=== PATIENT | male | born 2000 | race Caucasian/White ===

== ENCOUNTER 2020-03-30 01:55 | Emergency (ER) | payer MEDICAID ==
[~2020-03-30] VITALS: Ht 165.1 cm; Wt 68.0 kg
--- NOTE | 2020-03-30 02:11 | NUR ---
PT AAOX4. AMBULATORY WITH STEADY GAIT. BIBSELF C/O SI W/ PLAN TO HANG HIMSELF, -HI. PLACED IN GOWN, ON MONITOR AND PULSE OX. PT BELONINGS PLACED IN LOCKER. PT PROVIDED WITH BLANKET. VSS. AWAITING MD FOR EVAL.
--- NOTE | 2020-03-30 02:11 | NUR ---
PT BELONGINGS IN LOCKER #6
[2020-03-30 02:24] LABS: BASOPHILS # (AUTO) 0.1 /CMM (0.0-0.2); BASOPHILS % (AUTO) 0.8 % (0.0-2.0); EOSINOPHILS % (AUTO) 0.6 % (0.0-6.0); HEMATOCRIT 44 % (39-51); HEMOGLOBIN 14.8 g/dL (13.5-17.5); LYMPHOCYTES # (AUTO) 3.2 /CMM (0.8-4.8); LYMPHOCYTES % (AUTO) 24.6 % (20.0-44.0); MEAN CORPUSCULAR HGB CONC 33 g/dl (31.0-36.0); MEAN CORPUSCULAR VOLUME 89 fL (80-96); MONOCYTES # (AUTO) 0.9 /CMM (0.1-1.30); MONOCYTES % (AUTO) 6.6 % (2.0-12.0); NEUTROPHILS # (AUTO) 8.7 /CMM (1.8-8.9); NEUTROPHILS % (AUTO) 67.4 % (43.0-81.0); PLATELET COUNT (AUTO) 475 /CMM (150-450); WHITE BLOOD COUNT (AUTO) 12.9 K/uL (4.3-11.0)
[2020-03-30 02:52] LABS: CALCIUM, SERUM 8.5 mg/dL (8.5-10.1); CARBON DIOXIDE 25 mmol/L (21-32); CHLORIDE 99 mmol/L (98-107); CREATININE 0.9 mg/dL (0.6-1.3); GLUCOSE 100 mg/dL (74-106); POTASSIUM 4.1 mmol/L (3.5-5.1); SODIUM SERUM 136 mmol/L (136-145); UREA NITROGEN, BLOOD 16 mg/dL (7-18)
[2020-03-30 02:57] LABS: ALANINE AMINOTRANSFERASE 54 U/L (12-78); ALBUMIN 3.9 g/dL (3.4-5.0); ALCOHOL, BLOOD < 3 mg/dL (0-0); ALKALINE PHOSPHATASE 131 U/L (46-116); ASPARTATE AMINOTRANSFERASE 24 U/L (15-37); BILIRUBIN,TOTAL 0.2 mg/dL (0.2-1.0); TOTAL PROTEIN, SERUM 7.8 g/dL (6.4-8.2)
[2020-03-30 02:58] LABS: ACETAMINOPHEN 0 ug/ml (10-30); SALICYLATE 2.2 mg/dL (2.8-20.0)
[2020-03-30 03:01] LABS: APPEARANCE,URINE CLEAR (CLEAR); BILIRUBIN,URINE SMALL (NEGATIVE); BLOOD, URINE NEGATIVE Ery/uL (NEGATIVE); COLOR,URINE YELLOW (YELLOW); KETONES,URINE NEGATIVE (NEGATIVE); LEUKOCYTE ESTERASE ,URINE NEGATIVE (NEGATIVE); NITRITE, URINE NEGATIVE (NEGATIVE); PROTEIN,URINE NEGATIVE (NEGATIVE); UGLUCOSE NEGATIVE (NEGATIVE); UROBILINOGEN,URINE 0.2 EU/dL (0.2)
--- NOTE | 2020-03-30 03:54 | NUR ---
PT ASLEEP. SITTER AT BEDSIDE.
--- NOTE | 2020-03-30 04:37 | NUR ---
PT PROVIDED WITH WATER AND BLANKET.
--- NOTE | 2020-03-30 05:45 | NUR ---
Patient is resting comfortably in bed. Easily aroused. VSS.
--- NOTE | 2020-03-30 06:42 | NUR ---
RCEIVED A CALL FROM GUDELIA AT [facility] . CLINICAL HAS RECEIVED. THEY WILL UPDATE US IN ANOTHER COUPLE HOURS FOR ACCEPTANCE AND BED AVAILABILITY.
--- NOTE | 2020-03-30 09:17 | NUR ---
ASSESSED PT ON BED, ASLEEP BUT EASILY AROUSABLE, NOT IN RESPIRATORY DISTRESS, V/S STABLE, KEPT RESTED AND COMFORTABLE, WILL CONTINUE TO MONITOR.
--- NOTE | 2020-03-30 13:59 | NUR ---
COLLEGE PROFESSOR received a call from [facility] stating, pt was referred to [facility] this morning and no one from [facility] intake has followed up. COLLEGE PROFESSOR call [facility] intake and spoke with Marcy. Marcy reported, the clinicals are now being reviewed by business development executive at [place] and Marcy will f/u in 20 minutes with KRYSTA.
--- NOTE | 2020-03-30 14:09 | NUR ---
EKG TECHNICIAN received a call back from [facility] stating pt has been accepted at [facility]. Accepting Dr. Gonzalez/Jesus. Report needs to be called to TIM Campos at .
--- NOTE | 2020-03-30 14:15 | NUR ---
RE[facility].
--- NOTE | 2020-03-30 14:33 | NUR ---
[facility]IA [facility], ETA [id number], TRIP# [id number]
[2020-03-30 16:45] VITALS: BP 108/56
--- NOTE | 2020-03-30 17:20 | NUR ---
REPORT GIVEN TO EMS FOR PT TRANSFER TO [facility].
== END 2020-03-30 17:27 ==
LOC: ER 01:55
DX: R45.851 Suicidal ideations (principal); F32.9 Major depressive disorder, single episode, unspecified; F41.9 Anxiety disorder, unspecified; Z98.890 Other specified postprocedural states; Z59.0 Homelessness
CPT/HCPCS: 36415; 80048; 80076; 80305; 80307; 80329; 81001; 85025; 99285; G0480; 81000-TC